=== PATIENT | male | born 1980 | race Two or more races ===

== ENCOUNTER 2021-09-06 11:24 | Emergency (ER) | payer SELFPAY ==
[~2021-09-06] VITALS: Ht 170.2 cm; Wt 99.8 kg
[2021-09-06 13:59] VITALS: BP 133/71
== END 2021-09-06 14:03 | disposition home or self-care (01) ==
LOC: ER 11:24
DX: S09.90XA Unspecified injury of head, initial encounter (principal); W19.XXXA Unspecified fall, initial encounter; Y93.89 Activity, other specified; Y92.89 Other specified places as the place of occurrence of the external cause; Y99.8 Other external cause status
CPT/HCPCS: 70450; 72125